=== PATIENT | male | born 2000 | race African-American/Black ===

== ENCOUNTER 2022-01-07 12:54 | Emergency (ER) | payer OTHER ==
--- NOTE | 2022-01-07 14:15 | XRAY Report ---
PROCEDURE: Foot 3 View RT INDICATIONS: pain near pinky TECHNIQUE: 3 views of the foot were acquired. COMPARISON: None FINDINGS: Bones: No fractures or dislocations. No suspicious bony lesions. Soft tissues: No tibiotalar joint effusion. Achilles tendon appears normal. IMPRESSION: No visualized acute fracture or dislocation. However, occult injury cannot be excluded. Recommend gibran rt interval imaging follow-up in 7-10 days as clinically indicated for additional evaluation. Reviewed by: Zaynab Jaramillo MD on 01/07/2022 2:14 PM PDT Approved by: Zaynab Jaramillo MD on 01/07/2022 2:14 PM PDT Station ID: [id number]
[2022-01-07 14:43] VITALS: BP 93/64
--- NOTE | 2022-01-07 14:47 | ED Physician Documentation ---
History of Present Illness - Stated complaint Stated Complaint: RT FOOT PX - Chief complaint Chief Complaint: Ext Problem - Additonal information Additional information: 21-year-old male presents emergency department for evaluation of intermittent right small toe pain. Pain began a number of months ago. He does not remember inciting trauma or event. Occasionally will simply throb and feel swollen though it never has the appearance of being swollen. No fevers or red streaking. He is active duty [employer]. He reports [employer] medical was closed thus he comes to the ER. He is denying any pain at this time. He has a normal gait. Review of Systems Constitutional: denies: Chills Cardiac: reports: Reviewed and negative Respiratory: reports: Reviewed and negative Musculoskeletal: reports: Joint pain Neurologic: reports: Reviewed and negative PD PAST MEDICAL HISTORY - Allergies Allergies/Adverse Reactions: Allergies Allergy/AdvReac Type Severity Reaction Status Date / Time No Known Drug Allergies Allergy Verified 01/07/22 13:13 PD ED PE NORMAL - General General: Alert and oriented X 3, No acute distress - Extremities Extremities: No deformity, No tenderness to palpate, Normal ROM s pain, Other (No tenderness elicited with palpation or exam of the foot at the distal med a tarsals or proximal phalanx. Unremarkable exam. No swelling, ecchymosis erythema or deformity. 2+ DP pulse.) Results - Vitals Vitals: Vital Signs - 24 hr 01/07/22 01/07/22 13:10 14:42 Temperature 36.4 C L 98.3 C H Heart Rate 99 90 Respiratory 12 14 Rate Blood Pressure 128/75 93/64 O2 Saturation 100 100 Oxygen O2 Source Room air - Rads (name of study) Right foot Radiology: Final report received (No acute fracture or dislocation.) PD MEDICAL DECISION MAKING - ED course Complexity details: considered differential, d/w patient ED course: 21-year-old male presents emergency department for evaluation of intermittent and occasional pain of his right small toe. Denies any falls or trauma. Last time he had a pain event was about 2 days ago. He is free of symptoms at this time and has an unremarkable exam of the foot. An x-ray does not reveal any findings of trauma, fracture or healing osseous lesions. I suspect the source of his pain may be the tight work boots that he is required to wear for the . I am encouraging him him to occasionally use Motrin or Tylenol for the discomfort. Otherwise [place]. If this persist much further into the future may benefit from referral to podiatry. Departure - Departure Disposition: 01 Home, Self Care Clinical Impression: Toe pain, right Condition: Stable Record reviewed to determine appropriate education?: Yes Comments: Antonio the x-ray of your foot is normal. We were unable to elicit any tenderness of the toe today. Because the pain is intermittent I suspect that it may be related to the work boots required for . You may benefit from loosening the boots or using padding around the toe to see if that intermittently improves the discomfort. You can occasionally take Tylenol or ibuprofen. Recommend follow[place]up with [place].
== END 2022-01-07 15:04 | disposition home or self-care (01) ==
LOC: ED 12:54
DX: M79.674 Pain in right toe(s) (principal)
CPT/HCPCS: 99282; 99283